=== PATIENT | female | born 1990 | race Caucasian/White ===

== ENCOUNTER 2024-03-13 17:02 | Emergency (ER) | payer BC, SELFPAY ==
[2024-03-13 17:13] VITALS: BP 118/67
--- NOTE | 2024-03-13 17:36 | ED.GENMED ---
History of Present Illness
General
Chief Complaint: Skin Problem
Source: patient
Exam Limitations: none
Time Seen by Provider: 03/13/24 17:21
Nursing documentation reviewed up to this point in time: agreed with
History of Present Illness
History of Present Illness:
34-year-old female presenting to the emergency department today for concerns of right-sided arm swelling redness today started somewhat over the past few days but worsened today denies systemic symptoms fevers or any recent infections. That she
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
Past History
Past History
ED Past Medical History: None
ED Past Surgical History: None
Social History
Tobacco: Non-smoker
Alcohol: None
Review of Systems
Review of Systems
Allergies reviewed?: Yes
All Other Systems: ROS reviewed and negative except as documented in HPI and ROS
Phy Exam
Physical Exam
Physical Exam:
GENERAL: Alert , in no apparent distress
EYE: pupils equal and reactive
NECK: Supple, no significant adenopathy.
ENT: o/p clr, mmm.
CARDIAC: Regular rate and rhythm .
LUNGS: Clear breath sounds bilaterally, no acute respiratory distress, no wheezes/rales/rhonchi
ABDOMEN: Soft, without focal tenderness, no r/g, no cvat
NEUROLOGICAL: Alert and oriented, no focal neuro deficits
SKIN: Area of redness to the right posterior elbow region roughly 10 x 5 cm in total size of redness with sharply demarcated lines no sponginess or tenderness to the olecranon bursa specifically. Good range of motion without any significant
discomfort with range of motion. Warm and dry, skin intact.
MUSCULOSKELETAL: No edema, well perfused.
PSYCH: Normal and appropriate interaction.
Course
Vital Signs
Initial and Last Documented VS:
Initial Vital Signs
Temp Pulse Resp BP Pulse Ox
97.8 F 86 18 118/67 98
03/13/24 17:13 03/13/24 17:13 03/13/24 17:13 03/13/24 17:13 03/13/24 17:13
Last Documented Vital Signs
Temp Pulse Resp BP Pulse Ox
97.8 F 86 18 118/67 98
03/13/24 17:13 03/13/24 17:13 03/13/24 17:13 03/13/24 17:13 03/13/24 17:13
MDM/Problems Addressed
MDM/Problems Addressed:
33-year-old female presenting to the emergency department today with concerns of right-sided elbow redness and swelling. Good range of motion without any significant discomfort with movement making septic arthritis unlikely. Does not appear to be
in the olecranon bursa with no sponginess or tenderness to the olecranon bursa. Appears to be consistent with cellulitis concern is a small superficial scrape to the central area. Patient started on oral antibiotics but otherwise stable for
outpatient treatment return precautions were given.
*Critical Care Note
Total Time (30-74mins, 75-104mins- exclusive of procedures): Not Applicable
ED Attending Note
-
Portions of this chart may have been created with voice recognition software.� Occasional wrong word or��sound alike� substitutions may have occurred due to the inherent limitations of voice recognition software.
Discharge Plan
Departure
Patient Disposition: Home (Routine Discharge)
Date of Disposition: 03/13/24
Time of Disposition: 17:36
Patient with high blood pressure during this ER visit?: No
Condition: Good
Covid-19: Not Applicable
Discharge Problem:
Cellulitis of arm, right
Instructions: Cellulitis (Skin Infection), Adult (DC)
Prescriptions:
New
cephalexin 500 mg capsule
500 mg PO QID 7 Days Qty: 28 0RF
No Action
amoxicillin-pot clavulanate 875-125 mg tablet
1 tab PO BID Qty: 14 0RF
Activity Restrictions/Additional Instructions:
You came to the emergency department today with concerns of redness and swelling to your right arm. This appears to be consistent with cellulitis. Please take the prescribed antibiotics 4 times daily for neck 7 days and return for any worsening
symptoms fevers or any new concerns.
Interventions
Interventions:
*Risk Screen - Suicide Last Done: 03/13/24 17:13
*General Assessment Last Done: 03/13/24 17:13
*Neglect/Abuse Screening Last Done: 03/13/24 17:13
ED- Fall Risk Assessment Last Done: 03/13/24 17:48
*ED COVID-19 Vaccine History Last Done: 03/13/24 17:13
*Nursing Disposition Last Done: 03/13/24 17:55
ED-Skin Assessment Last Done: 03/13/24 17:48
Discharge Date and Time
Discharge Date/Time: 03/13/24 17:56
Print Language: LAO
== END 2024-03-13 17:56 | disposition home or self-care (01) ==
LOC: EMR 17:02
PROVIDERS: EMERGENCY PHYSICIAN Student in an Organized Health Care Education/Training Program
DX: L03.113 Cellulitis of right upper limb (principal)
CPT/HCPCS: 99283